=== PATIENT | female | born 1990 | race Caucasian/White ===

== ENCOUNTER 2016-05-27 17:12 | Emergency (ER) | payer SELFPAY ==
[2016-05-27 18:02] VITALS: BP 125/78
--- NOTE | 2016-05-27 18:16 | ER Document Report ---
ED Medical Screen (RME) - General Stated Complaint: LEFT KNEE PAIN Notes: 25 yo female c/o left knee pain x 5 days. + hx/o dislocation with LCL. pt fell while playing with her child. + swelling. no instability. TRAVEL OUTSIDE OF THE [place] IN LAST 30 DAYS: No - Related Data Allergies/Adverse Reactions: morphine [Morphine] Allergy (Severe, Verified 09/06/15 10:12) Hives latex [Latex] Allergy (Verified 09/06/15 10:12) Past Medical History Endocrine Medical History: Reports: Hx Hypothyroidism Musculoskeltal Medical History: Reports Hx Musculoskeletal Trauma - dislocated knee, sprained ankle and fractured clavicle Past Surgical History: Reports: Hx Adenoidectomy, Hx Section, Hx Myringotomy, Hx Oral Surgery, Hx Tonsillectomy - Immunizations Immunizations up to date: Yes Hx Diphtheria, Pertussis, Tetanus Vaccination: Yes Physical Exam - Vital signs Vitals: Temp Pulse Resp BP Pulse Ox 97.4 F 58 L 18 125/78 99 05/27/16 18:01 05/27/16 18:05/27/16 18:01 05/27/16 18:01 05/27/16 18:01 Course - Vital Signs Vital signs: Temp Pulse Resp BP Pulse Ox 97.4 F 58 L 18 125/78 99 05/27/16 18:01 05/27/16 18:01 05/27/16 18:01 05/27/16 18:01 05/27/16 18:01
[2016-05-27] MEDS ORDERED: TRAMADOL HCL 50 MG TABLET PO ONE (23:35)
--- NOTE | 2016-05-27 23:38 | ER Document Report ---
ED General - General Chief Complaint: Knee Pain Stated Complaint: LEFT KNEE PAIN Notes: Patient is a 25 old female presents for complaint of pain in her left knee. She has previous history of injury to urinate a younger age. She says physical therapy for her knee. Today she tripped and fell pain along the lateral aspect of her knee. She's able to walk but is painful to do so. Pain is mostly over the lateral aspect. No swelling. No recent fevers or infections. No other complaints at this time. TRAVEL OUTSIDE OF THE [place] IN LAST 30 DAYS: No - Related Data Allergies/Adverse Reactions: morphine [Morphine] Allergy (Severe, Verified 09/06/15 10:12) Hives latex [Latex] Allergy (Verified 09/06/15 10:12) Past Medical History - Social History Smoking Status: Never Smoker Chew tobacco use (# tins/day): No Frequency of alcohol use: None Drug Abuse: None Family History: Arthritis, Hypertension, Malignancy Patient has suicidal ideation: No Patient has homicidal ideation: No Endocrine Medical History: Reports: Hx Hypothyroidism Renal/ Medical History: Denies: Hx Peritoneal Dialysis Musculoskeltal Medical History: Reports Hx Musculoskeletal Trauma - dislocated knee, sprained ankle and fractured clavicle Past Surgical History: Reports: Hx Adenoidectomy, Hx Section, Hx Myringotomy, Hx Oral Surgery, Hx Tonsillectomy - Immunizations Immunizations up to date: Yes Hx Diphtheria, Pertussis, Tetanus Vaccination: Yes Review of Systems - Review of Systems Notes: My Normal Review Basic REVIEW OF SYSTEMS: CONSTITUTIONAL : Denies fever, chills, or sweats. Denies recent illness. MUSCULOSKELETAL: Left knee pain SKIN: Denies rash or skin lesions. NEUROLOGICAL: Normal distal sensation ALL OTHER SYSTEMS REVIEWED AND NEGATIVE. Physical Exam - Vital signs Vitals: Temp Pulse Resp BP Pulse Ox 97.4 F 58 L 18 125/78 99 05/27/16 18:01 05/27/16 18:05/27/16 18:05/27/16 18:05/27/16 18:01 - Notes Notes: General Appearance: Well nourished, alert, cooperative, no acute distress, mild to moderate obvious discomfort. Vitals: reviewed, See vital signs table. Head: no swelling or tenderness to the head Eyes: PERRL, EOMI, Conjuctiva clear Extremities: strength 5/5 in all extremities, good pulses in all extremities, pain to palpation over the lateral aspect of the left knee. No swelling to the knee. Some pain to palpation over the patella as well. Patient is able to extend her knee without difficulty. No significant laxity in the knee., no edema. Distal sensation intact in distal leg. Normal skin color in distal leg. Skin: warm, dry, appropriate color, no rash Neuro: speech clear, oriented x 3, normal affect, responds appropriately to questions. Course - Vital Signs Vital signs: Temp Pulse Resp BP Pulse Ox 97.4 F 58 L 18 125/78 99 05/27/16 18:01 05/27/16 18:01 05/27/16 18:01 05/27/16 18:05/27/16 18:01 - Transfer of Care Notes: 05/28/16 07:38 Patient examined history of appears patient probably has a knee strain. She does not have significant swelling on exam. I encourage her to wear knee brace. I did encourage her to use crutches but she refuses to use crutches. I will have her follow up with orthopedic clinic for reevaluation. I encourage her to return to ER shows swelling, worsening pain, or feels unwell. Patient agrees with plan and will be discharged home. Dictation of this chart was performed using voice recognition software; therefore, there may be some unintended grammatical errors. Discharge - Discharge Clinical Impression: Strain of left knee Qualifiers: Encounter type: initial encounter Qualified Code(s): S86.912A - Strain of unspecified muscle(s) and tendon(s) at lower leg level, left leg, initial encounter Condition: Good Disposition: HOME, SELF-CARE Instructions: Oral Narcotic Medication ([facility]), Sprained Knee ([facility]) Additional Instructions: Please wear some sort of support to left knee. I suggested you wear an Cory wrap until he can go to the drug store and buy a neoprene knee brace. Please wear this whenever up and walking. Please follow-up with the orthopedic clinic. The number for the orthopedic clinic is under the name, Dr. Lindsay. Please return to ER immediately if you have increased swelling, fevers, or redness to the knee. Please to not do any exertional or athletic activities until cleared by a physician. Prescriptions: Tramadol HCl [Ultram 50 mg Tablet] 50 mg PO Q6HP PRN #20 tablet PRN Reason: Forms: Return to Work Referrals: IBRAHIMA LINDSAY MD [ACTIVE STAFF] - Follow up in 3-5 days
== END 2016-05-27 23:44 | disposition home or self-care (01) ==
LOC: ER 17:12
DX: S86.912A Strain of unspecified muscle(s) and tendon(s) at lower leg level, left leg, initial encounter (principal); M25.562 Pain in left knee; X58.XXXA Exposure to other specified factors, initial encounter
CPT/HCPCS: 99283

== ENCOUNTER 2016-12-20 16:46 | Emergency (ER) | payer BC, MEDICAID ==
[2016-12-20 16:54] VITALS: BP 141/81
[2016-12-20 17:46] LABS: APPEARANCE,URINE CLEAR; BILIRUBIN,URINE NEGATIVE (NEGATIVE); GLUCOSE, URINE NEGATIVE (NEGATIVE); KETONES,URINE NEGATIVE (NEGATIVE); LEUKOCYTE ESTERASE,URINE NEGATIVE (NEGATIVE); NITRITE,URINE NEGATIVE (NEGATIVE); PROTEIN,URINE NEGATIVE (NEGATIVE); URINE SPECIFIC GRAVITY 1.004; UROBILINOGEN,URINE NEGATIVE mg/dL (<2.0)
== END 2016-12-20 21:13 | disposition home or self-care (01) ==
LOC: ER 16:46
DX: O26.899 Other specified pregnancy related conditions, unspecified trimester (principal); R10.9 Unspecified abdominal pain; Z3A.00 Weeks of gestation of pregnancy not specified
CPT/HCPCS: 81001; 99284

== ENCOUNTER 2017-03-12 19:49 | Observation (INO) | payer BC, MEDICAID ==
[2017-03-12 20:40] LABS: APPEARANCE,URINE SLIGHTLY-CLOUDY; BILIRUBIN,URINE NEGATIVE (NEGATIVE); GLUCOSE, URINE NEGATIVE (NEGATIVE); KETONES,URINE NEGATIVE (NEGATIVE); LEUKOCYTE ESTERASE,URINE NEGATIVE (NEGATIVE); NITRITE,URINE NEGATIVE (NEGATIVE); PROTEIN,URINE 30 mg/dL (NEGATIVE); URINE SPECIFIC GRAVITY 1.019; UROBILINOGEN,URINE NEGATIVE mg/dL (<2.0)
[2017-03-12 20:55] LABS: URINE BARBITURATES SCREEN NEGATIVE; URINE METHADONE SCREEN NEGATIVE; URINE OPIATES LOW NEGATIVE; URINE PHENCYCLIDINE SCREEN NEGATIVE
--- NOTE | 2017-03-12 21:37 | RADIOLOGY REPORT (SQ) ---
EXAM DESCRIPTION: U/S OB LIMITED COMPLETED DATE/TIME: 03/12/2017 9:24 pm REASON FOR STUDY: vag bleeding - cervical length, placenta wellbeing COMPARISON: None. TECHNIQUE: Limited transvaginal grayscale ultrasound for evaluation of specific requested obstetrica l parameters. LIMITATIONS: None. FINDINGS: CERVICAL LENGTH: 4.1 cm. Closed. FHR: 144 beats per minute. PRESENTATION: Cephalic. OTHER: Anterior placenta without previa. IMPRESSION: LIMITED OBSTETRICAL ULTRASOUND WITH MEASURED PARAMETERS DELINEATED ABOVE. Trimester of : 3rd. TECHNICAL DOCUMENTATION: JOB ID: [id number] [employer] All Rights Reserved
--- NOTE | 2017-03-29 13:34 | Admission Physical ---
Datetime Report Generated by CPN: 03/29/2017 13:34 CURRENT ADMISSION Chief Complaint: Vaginal Bleeding Indication for Induction: Not Applicable Indication for Induction: Vaginal Bleeding Admit Plan: Admit to Unit; Observation/Evaluation ALLERGIES Medication Allergies: Yes Medication Allergies: morphine/SV/Hives (03/21/2017); latex (03/21/2017) Medication Allergies: morphine/SV/Hives (03/12/2017); latex (03/12/2017) Medication Allergies: morphine/SV/Hives (12/20/2016); latex (12/20/2016) Latex: Latex Allergies Food Allergies: denies Environmental Allergies: denies OBSTETRICAL HISTORY EDC: 05/13/2017 00:00 : 2 Para: 1 Term: 0 : 1 SAB: 0 IAB: 0 Ectopic: 0 Livin Cesareans: 1 VBACs: 0 Multiple Births: 0 Gestational Diabetes: No Rh Sensitization: No Incompetent Cervix: No KOBY: No Infertility: No ART Treatment: No Uterine Anomaly: No IUGR: No Hx Previous C/S: Yes Macrosomia: No Hx Loss/Stillborn: No PIH: Yes Hx : No Placenta Previa/Abruption: No Depression/PP Depression: No PTL/PROM: Yes Post Hemorrhage: No Current Procedures: Ultrasound Obstetrical History Comments: g1- 2014, 35 weeks, emergency csection, preeclampsia, ptl stopped with medications, MRSA infection in csection incision after delivery g2-current SEE RECORDS Alcohol: No Marijuana : No Cocaine: No Other Illicit Drugs: No Cigarettes: Never Smoker. 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 Heart Disease: No Hosp/Surgery: Yes Autoimmune Disorder: No Anesthetic Complications: No Kidney Disease: No Abnormal Pap Smear: No Neuro/Epilepsy: No Psychiatric Disorders: No Other Medical Diseases: No Hepatitis/Liver Disease: No Significant Family History: No Varicosities/Phlebitis: Yes Trauma/Violence : No Thyroid Dysfunction: Yes Medical History Comments: csection x 1, MRSA infection in csection incision, preeclampsia, vaginal varcosities on mons, hypothyroid INFECTIOUS HISTORY Gonorrhea: No Genital Herpes: No Chlamydia: No Tuberculosis: No Syphilis: No Hepatitis: No HIV/AIDS Exposure: No Rash or Viral Illness: No HPV: No PHYSICAL EXAM General: Normal HEENT: Normal Neurologic: Normal Thyroid: Normal Heart: Normal Lungs: Normal Breast: Deferred Back: Normal Abdomen: Normal Genitourinary Exam: Normal Extremities: Normal DTRs: Normal Pelvic Type: Adequate FETUS A Monitoring: External US PLANS FOR LABOR AND DELIVERY Labor and Delivery: None Pain Management: Spinal Other Pain Management Plans: if able to go to [facility] would like to Feeding Preference: Breast Benefit of Breast Feed Discussed: Yes Circumcision: Yes INFORMED CONSENT Signature: with User ID: [email or web address]
== END 2017-03-13 08:25 | disposition home or self-care (01) ==
LOC: LC 19:49 → LR 21:59
PROVIDERS: ADMIT Obstetrics & Gynecology Gynecology; ATTEND Obstetrics & Gynecology Gynecology
DX: O09.213 Supervision of pregnancy with history of pre-term labor, third trimester (principal); O99.283 Endocrine, nutritional and metabolic diseases complicating pregnancy, third trimester; E03.9 Hypothyroidism, unspecified; Z3A.31 31 weeks gestation of pregnancy
CPT/HCPCS: 81001; 80307; 76815; G0378 ×2; Q0114

== ENCOUNTER 2017-03-21 09:04 | Outpatient (CLI) | payer BC, MEDICAID ==
[2017-03-21 10:04] LABS: APPEARANCE,URINE SLIGHTLY-CLOUDY; BILIRUBIN,URINE NEGATIVE (NEGATIVE); GLUCOSE, URINE NEGATIVE (NEGATIVE); KETONES,URINE NEGATIVE (NEGATIVE); LEUKOCYTE ESTERASE,URINE NEGATIVE (NEGATIVE); NITRITE,URINE NEGATIVE (NEGATIVE); PROTEIN,URINE NEGATIVE (NEGATIVE); URINE SPECIFIC GRAVITY 1.015; UROBILINOGEN,URINE NEGATIVE mg/dL (<2.0)
[2017-03-21 10:06] LABS: AMNISURE (ROM) NEGATIVE (NEGATIVE)
[2017-03-21] MEDS ORDERED: HYDROXYZINE PAMOATE 50 MG CAPSULE PO ONE (10:12)
[2017-03-21] MEDS ORDERED: BUTALB/ACETAMINOPHEN/CAFFEINE 1 TAB EACH PO ONE (10:12)
[2017-03-21] MEDS ORDERED: BUTALB/ACETAMINOPHEN/CAFFEINE 1 TAB EACH ONE (10:15)
[2017-03-21] MEDS ORDERED: HYDROXYZINE PAMOATE 50 MG CAPSULE ONE (10:15)
[2017-03-21 10:17] LABS: URINE BARBITURATES SCREEN NEGATIVE; URINE METHADONE SCREEN NEGATIVE; URINE OPIATES LOW NEGATIVE; URINE PHENCYCLIDINE SCREEN NEGATIVE
== END 2017-03-21 10:27 | disposition home or self-care (01) ==
LOC: LC 09:04
PROVIDERS: ATTEND Obstetrics & Gynecology
PROC: 4A1HXCZ Monitoring of Products of Conception, Cardiac Rate, External Approach (ICD-10-PCS; principal; 2017-03-21)
DX: O47.03 False labor before 37 completed weeks of gestation, third trimester (principal); Z3A.32 32 weeks gestation of pregnancy
CPT/HCPCS: 59025; 84112; 81001; 80307; J3490